=== PATIENT | female | born 1955 | race Two or more races ===

== ENCOUNTER 2024-09-23 20:37 | Inpatient (IN) | payer MEDICAID, OTHER ==
[~2024-09-23] VITALS: Ht 157.5 cm; Wt 44.5 kg
[2024-09-23] MEDS ORDERED: SENN8.6T19 PO (21:45)
[2024-09-23] MEDS ORDERED: POLY15DR31 OP (21:45)
[2024-09-23] MEDS ORDERED: TAMS-3 PO (21:45)
[2024-09-23] MEDS ORDERED: DIVA250T4 PO (21:45)
[2024-09-23] MEDS ORDERED: QUET25TA PO (21:45)
[2024-09-23] MEDS ORDERED: ACET-3117 PO (21:45)
[2024-09-23] MEDS ORDERED: ATRO2DRO4 OP (21:45)
[2024-09-23] MEDS ORDERED: PANT40TA2 PO (21:45)
[2024-09-23] MEDS ORDERED: [UNRECOGNIZED DRUG - OTHER] PO (21:45)
[2024-09-23] MEDS ORDERED: MORPHINE SULFATE PO (21:45)
[2024-09-23] MEDS ORDERED: FOLI1TAB94 PO (21:45)
[2024-09-23] MEDS ORDERED: NA P133E RC (21:45)
[2024-09-23] MEDS ORDERED: CHOL200010 PO (21:45)
[2024-09-23] MEDS ORDERED: APIX5TAB PO (21:45)
[2024-09-23] MEDS ORDERED: MULT-225 PO (21:45)
[2024-09-23] MEDS ORDERED: MAGN400O6 PO (21:45)
[2024-09-23] MEDS ORDERED: LORA-259 PO ×2 (21:45)
[2024-09-23] MEDS ORDERED: MELA3CAP2 PO (21:45)
[2024-09-23] MEDS ORDERED: LACO50TA2 PO (21:45)
[2024-09-23] MEDS ORDERED: BISA10SU61 RC (21:45)
[2024-09-23 22:05] LABS: PLATELET COUNT (AUTO) 141 K/uL (179-408); RED BLOOD CELL COUNT(AUTO) 3.96 MIL/uL (3.63-4.92); RED CELL DISTRIBUTION WIDTH 15.1 % (12.3-17.7); WHITE BLOOD COUNT (AUTO) 6.1 K/uL (3.8-11.8)
[2024-09-23 22:14] LABS: *BILIRUBIN,URIN NEGATIVE (NEGATIVE); *CLARITY,URINE CLEAR (CLEAR); *COLOR,URINE YELLOW (YELLOW); *KETONES,URINE NEGATIVE (NEGATIVE); *PROTEIN,URINE NEGATIVE (NEGATIVE); *UROBILINOGEN,URINE 1.0 E.U./dl (NORMAL); LEUKOCYTE ESTERASE ,URINE TRACE (NEGATIVE); NITRITE, URINE POSITIVE (NEGATIVE); UGLUCOSE NEGATIVE (NEGATIVE)
[2024-09-23 22:16] LABS: *BLOOD, URINE TRACE (NEGATIVE)
[2024-09-23 22:34] LABS: CREATININE 0.5 mg/dL (0.6-1.3); SODIUM SERUM 142 mmol/L (136-145); UREA NITROGEN, BLOOD 8 mg/dL (7-18)
[2024-09-23 22:36] LABS: *AMPHETAMINE, URINE NEGATIVE (NEGATIVE); *BARBITURATE, URINE NEGATIVE (NEGATIVE); *BENZODIAZEPINE, URINE NEGATIVE (NEGATIVE); *CANNABINOID, URINE NEGATIVE (NEGATIVE); *COCCAINE, URINE NEGATIVE (NEGATIVE); *OPIATE, URINE POSITIVE (NEGATIVE); *PHENCYCLIDINE SCREEN,URINE NEGATIVE (NEGATIVE); FENTANYL, URINE NEGATIVE (NEGATIVE)
[2024-09-23 22:40] LABS: SQUAMOUS EPITHELIAL CELL,UR MODERATE /HPF (NONE SEEN)
[2024-09-23 22:42] LABS: URINE AMORPHOUS URATE MODERATE /HPF
[2024-09-23 22:44] LABS: ASPARTATE AMINOTRANSFERASE 16 U/L (15-37); TOTAL PROTEIN, SERUM 7.6 g/dL (6.4-8.2)
[2024-09-23 22:48] LABS: ETHANOL < 3 MG/DL (0-10)
[2024-09-23] MEDS ORDERED: INSU100C SQ (23:40)
[2024-09-24 04:04] VITALS: BP 105/66
[2024-09-24] MEDS ORDERED: MAG HYDROX/AL HYDROX/SIMETH 30 ML LIQUID UDC PO PRN (04:45)
[2024-09-24] MEDS ORDERED: LORAZEPAM 1 MG TABLET PO PRN (04:45)
[2024-09-24] MEDS ORDERED: TEMAZEPAM 7.5 MG CAPSULE PO PRN (04:45)
[2024-09-24] MEDS ORDERED: MAGNESIUM HYDROXIDE 30 ML LIQUID UDC PO PRN (04:45)
[2024-09-24 04:51] VITALS: BP 115/68; TEMP 99.2; O2SAT 99
[2024-09-24] MEDS: BLOOD SUGAR DIAGNOSTIC 1 EACH STRIP VI ONE (05:23)
[2024-09-24] MEDS ORDERED: DEXTROSE 50% 50 ML DISP.SYRIN IV PRN (06:45)
[2024-09-24] MEDS: BLOOD SUGAR DIAGNOSTIC 1 EACH STRIP VI SCH (07:30)
[2024-09-24 07:47] LABS: GLUCOSE FASTING 82.0 mg/dL (70-115)
[2024-09-24 08:00] VITALS: BP 101/63; TEMP 98.6; O2SAT 99
[2024-09-24] MEDS ORDERED: Medication Not On Formulary EA (Multivitamins (Multiple Vitamin) 1 EACH) PO SCH (09:00)
[2024-09-24] MEDS: TAMSULOSIN HCL 0.4 MG CAP.SR.24H PO SCH (09:04)
[2024-09-24] MEDS: LACOSAMIDE 50 MG TABLET PO SCH (09:04)
[2024-09-24] MEDS: SENNOSIDES 1 TABLET PO SCH (09:04)
[2024-09-24] MEDS: APIXABAN 5 MG TABLET PO SCH (09:04)
[2024-09-24] MEDS: FOLIC ACID 1 MG TABLET PO SCH (09:04)
[2024-09-24] MEDS: MULTIVIT, IRON, MIN NO. 8, FA TABLET PO SCH (09:04)
[2024-09-24] MEDS: PANTOPRAZOLE SODIUM 40 MG TABLET.DR PO SCH (09:08)
[2024-09-24] MEDS: POLYVINYL ALCOHOL OPHT DROPS 15 ML BOTTLE EACHEYE SCH (09:08)
[2024-09-24 15:39] VITALS: BP 113/53; TEMP 98.5; O2SAT 98
[2024-09-24] MEDS: GLUCERNA SHAKE 237 ML CAN PO SCH (16:18)
[2024-09-24] MEDS: LORAZEPAM 1 MG TABLET PO PRN (16:18)
[2024-09-24] MEDS: ACETAMINOPHEN 325 MG TABLET PO PRN (17:57)
[2024-09-24 20:00] VITALS: BP 112/72; TEMP 98.9; O2SAT 98
[2024-09-24] MEDS: INSULIN REGULAR, HUMAN 1000 UNIT/10 ML VIAL SQ PRN (20:33)
[2024-09-24] MEDS: TEMAZEPAM 7.5 MG CAPSULE PO PRN (21:37)
[2024-09-25 07:31] LABS: VALPROIC ACID 13 ug/mL (50-100)
[2024-09-25 08:23] VITALS: BP 101/63; TEMP 98.1; O2SAT 100
[2024-09-25] MEDS: DIVALPROEX 250 MG TABLET.DR PO SCH (09:01)
[2024-09-25] MEDS: ERGOCALCIFEROL 50,000 UNIT CAPSULE PO SCH (09:01)
[2024-09-25 16:10] VITALS: BP 107/63; TEMP 98.7; O2SAT 99
[2024-09-25 20:00] VITALS: BP 103/52; TEMP 98.3; O2SAT 100
[2024-09-25] MEDS: MUPIROCIN 2% OINT 22 GM TUBE NS SCH (21:00)
[2024-09-26 08:17] VITALS: BP 109/67; TEMP 98.2; O2SAT 98
[2024-09-26 20:00] VITALS: BP 112/74; TEMP 98.6; O2SAT 98
[2024-09-26] MEDS: QUETIAPINE FUMARATE 25 MG TABLET PO SCH (20:36)
[2024-09-26] MEDS ORDERED: QUETIAPINE FUMARATE 25 MG TABLET PO SCH (21:00)
[2024-09-27 09:48] VITALS: BP 106/59; TEMP 97.8; O2SAT 100
[2024-09-27 15:39] VITALS: BP 107/69; TEMP 97.8; O2SAT 99
[2024-09-27 20:00] VITALS: BP 121/59; TEMP 98.5; O2SAT 96
[2024-09-28 08:24] VITALS: BP 126/68; TEMP 97.3; O2SAT 99
[2024-09-28 16:47] VITALS: BP 121/68; TEMP 97.3; O2SAT 99
[2024-09-28 20:00] VITALS: BP 100/59; TEMP 98.2; O2SAT 98
[2024-09-28] MEDS: APIXABAN 5 MG TABLET PO SCH (20:27)
[2024-09-29 09:18] VITALS: BP 101/57; TEMP 97.9; O2SAT 99
[2024-09-29 16:13] VITALS: BP 102/62; TEMP 97.3; O2SAT 99
[2024-09-29 20:07] VITALS: BP 106/58; TEMP 98.2; O2SAT 95
[2024-09-30 08:04] VITALS: BP 132/70; TEMP 98; O2SAT 99
[2024-09-30] MEDS: DIVALPROEX 500 MG TABLET.DR PO SCH (08:48)
[2024-09-30 16:24] VITALS: BP 120/74; TEMP 98.2; O2SAT 98
[2024-09-30 20:07] VITALS: BP 118/68; TEMP 98.1; O2SAT 98
[2024-10-01 08:45] VITALS: BP 85/46; TEMP 98.4; O2SAT 100
[2024-10-01 15:55] VITALS: BP 86/47; TEMP 98.7; O2SAT 99
[2024-10-02 08:00] VITALS: BP 114/66; TEMP 98; O2SAT 99
[2024-10-02 15:48] VITALS: BP 92/62; TEMP 98; O2SAT 98
[2024-10-02 20:00] VITALS: BP 105/48; TEMP 98.3; O2SAT 100
[2024-10-02] MEDS: REMEDY ESSENTIAL ZINC PASTE 113 GM TOP SCH (21:11)
[2024-10-03 07:51] VITALS: BP 98/59; TEMP 98.2; O2SAT 99
[2024-10-03] MEDS: QUETIAPINE FUMARATE 25 MG TABLET PO SCH (08:56)
[2024-10-03 15:50] VITALS: BP 105/65; TEMP 98.6; O2SAT 99
[2024-10-03 20:00] VITALS: BP 99/62; TEMP 98; O2SAT 99
[2024-10-04 08:15] VITALS: BP 90/50; TEMP 98; O2SAT 99
[2024-10-04 15:35] VITALS: BP 90/49; TEMP 98.4; O2SAT 99
[2024-10-04 20:00] VITALS: BP 94/59; TEMP 98.4; O2SAT 99
[2024-10-05 08:20] VITALS: BP 127/47; TEMP 98; O2SAT 99
[2024-10-05 16:52] VITALS: BP 96/49; TEMP 98; O2SAT 99
[2024-10-05 20:00] VITALS: BP 96/57; TEMP 98.7; O2SAT 97
== END 2024-10-06 07:36 | DRG 751 ==
LOC: ER 21:14 → EDBD 09-24 03:00 → GPS 09-24 03:00
PROVIDERS: ADMIT Psychiatry & Neurology Psychosomatic Medicine; ATTEND Nurse Practitioner Acute Care
DX: F29 Unspecified psychosis not due to a substance or known physiological condition (principal); D68.59 Other primary thrombophilia; E44.0 Moderate protein-calorie malnutrition; E88.09 Other disorders of plasma-protein metabolism, not elsewhere classified; E11.9 Type 2 diabetes mellitus without complications; G40.909 Epilepsy, unspecified, not intractable, without status epilepticus; F03.93 Unspecified dementia, unspecified severity, with mood disturbance; N39.0 Urinary tract infection, site not specified; B96.20 Unspecified Escherichia coli [E. coli] as the cause of diseases classified elsewhere; S00.12XA Contusion of left eyelid and periocular area, initial encounter; Z74.01 Bed confinement status; Z66 Do not resuscitate; W19.XXXA Unspecified fall, initial encounter; Y92.89 Other specified places as the place of occurrence of the external cause; Z22.322 Carrier or suspected carrier of Methicillin resistant Staphylococcus aureus; Z79.01 Long term (current) use of anticoagulants; Z79.4 Long term (current) use of insulin; Z79.899 Other long term (current) drug therapy
CPT/HCPCS: 36415; 80164; 85025; 87077; 87086; C1758; G0480; J1815; J3490